=== PATIENT | female | born 1970 | race Caucasian/White ===

== ENCOUNTER 2016-12-22 10:43 | Emergency (ER) | payer MEDICAID | END 2016-12-22 12:09 | disposition left against medical advice (07) | LOC: ER 10:43 | DX: M54.2 Cervicalgia (principal); Z53.21 Procedure and treatment not carried out due to patient leaving prior to being seen by health care provider ==

== ENCOUNTER 2016-12-22 22:36 | Emergency (ER) | payer MEDICAID ==
[~2016-12-22] VITALS: Ht 160 cm; Wt 66.7 kg
[2016-12-22 23:02] VITALS: BP 112/75
[2016-12-23] MEDS ORDERED: IBUPROFEN 600 MG TAB PO ONE (01:00)
== END 2016-12-23 00:57 | disposition home or self-care (01) ==
LOC: ER 22:36
DX: I88.9 Nonspecific lymphadenitis, unspecified (principal); Z88.0 Allergy status to penicillin; Z88.6 Allergy status to analgesic agent; Z88.8 Allergy status to other drugs, medicaments and biological substances; Z90.710 Acquired absence of both cervix and uterus; Z90.49 Acquired absence of other specified parts of digestive tract

== ENCOUNTER 2017-03-07 16:18 | Inpatient (IN) | payer MEDICAID ==
[~2017-03-07] VITALS: Ht 160 cm; Wt 79.9 kg
[2017-03-07] MEDS ORDERED: ONDANSETRON HCL 4 MG/2 ML VIAL IV ONE (18:15)
[2017-03-07] MEDS ORDERED: ENOXAPARIN SOD 100 MG/1 ML SYRINGE SC ONE (18:15)
[2017-03-07] MEDS ORDERED: MORPHINE SULFATE 4 MG/ML SYRG IV ONE (18:15)
[2017-03-07] MEDS ORDERED: LACTULOSE 20Gm/30ML SOLN PO PRN (18:45)
[2017-03-07] MEDS ORDERED: NITROGLYCERIN 0.4 MG SL TAB SL PRN (18:45)
[2017-03-07] MEDS ORDERED: MORPHINE SULF INJ 2 MG/ML SYRINGE 1ML IV PRN (18:45)
[2017-03-07] MEDS ORDERED: IOHEXOL 350 MG/ML 100ML IJ ONE ×2 (19:11→20:44)
[2017-03-07 21:15] LABS: Basophils # (auto) 0 uL; Basophils % (auto) 0.5 % (0.0-2.0); CONDITION Y; Eosinophils # (auto) 0.1 uL; Hematocrit 33.9 % (36.0-46.0); Hemoglobin 11.1 g/dL (12.2-16.2); Lymphocytes # (auto) 2.4 uL; Lymphocytes % (auto) 43.9 % (10.0-50.0); Mean Corpuscular Hemoglobin 28.2 pg (28.0-32.0); Mean Corpuscular Hgb Conc. 32.8 g/dL (32.0-36.0); Mean Corpuscular Volume 85.9 fL (80.0-100.0); Mean Platelet Volume 9.4 fL (7.4-10.4); Monocytes # (auto) 0.5 uL; Monocytes % (auto) 9.6 % (0.0-12.0); Neutrophils # (auto) 2.4 uL; Platelet Count (auto) 291 10^3/uL (140-450); Red Cell Distribution Width 15.5 % (11.6-16.0); White Blood Cell 5.5 10^3/uL (4.4-10.8)
[2017-03-07 21:23] LABS: INR 1.02 (0.9-1.15); Partial Thromboplastin Time 33.6 sec (22.64-33.71); Prothrombin Time 11.1 sec (9.37-12.3)
[2017-03-07 21:30] LABS: Urine Bilirubin Negative (Negative); Urine Blood Negative /uL (Negative); Urine Color Yellow (Yellow); Urine Glucose Normal (Normal); Urine Ketone Negative (Negative); Urine Nitrite Negative (Negative); Urine RBC 1 /hpf (0 - 4); Urine Squamous Epithelial Cell FEW /hpf (<5); Urine Urobilinogen Normal (Negative)
[2017-03-07 21:30] LABS: Albumin 3.3 g/dL (3.4-5.0); BUN/Creatinine Ratio 13.2; Bilirubin, Total 0.4 mg/dL (0.2-1.0); Calcium 8.5 mg/dL (8.5-10.1); Potassium 3.7 mmol/L (3.5-5.1); Total Protein 7.2 g/dL (6.4-8.2)
[2017-03-07] MEDS: ENOXAPARIN SOD 80 MG/0.8ML SYRINGE SC SCH (21:40)
[2017-03-07] MEDS: MORPHINE SULF INJ 2 MG/ML SYRINGE 1ML IV PRN (21:42)
[2017-03-07 22:00] VITALS: BP 136/73
[2017-03-08] MEDS: LORazepam 0.5 MG TAB PO PRN (01:55)
[2017-03-08] MEDS: MORPHINE SULFATE 4 MG/ML SYRG IV PRN ×5 (01:58→18:43)
[2017-03-08] MEDS: MORPHINE SULF INJ 2 MG/ML SYRINGE 1ML IV PRN (02:00)
[2017-03-08 05:00] VITALS: BP 130/66
[2017-03-08] MEDS: ONDANSETRON HCL 4 MG/2 ML VIAL IV PRN ×4 (07:20→18:43)
[2017-03-08 08:00] VITALS: BP 124/66
[2017-03-08 09:00] VITALS: BP_SYST 124; BP_SYST 133; BP_DIAS 76
[2017-03-08 09:10] LABS: INR 1.02 (0.9-1.15); Partial Thromboplastin Time 35.5 sec (22.64-33.71); Prothrombin Time 11.1 sec (9.37-12.3)
[2017-03-08] MEDS: ENOXAPARIN SOD 80 MG/0.8ML SYRINGE SC SCH ×2 (09:43→22:02)
[2017-03-08] MEDS: PANTOPRAZOLE 40 MG TAB PO SCH (09:43)
[2017-03-08 13:00] VITALS: BP 130/67
[2017-03-08] MEDS ORDERED: NAPR1SUS PO (13:18)
[2017-03-08] MEDS ORDERED: DIPH25CA66 PO (13:18)
[2017-03-08] MEDS ORDERED: HYDR-531 PO (13:18)
[2017-03-08 17:00] VITALS: BP 131/78
[2017-03-08] MEDS ORDERED: WARFARIN SODIUM 10 MG TAB PO ONE (19:45)
[2017-03-08] MEDS ORDERED: KETOROLAC TROMETH 30 MG/ML 1ML VIAL IV ONE (21:15)
[2017-03-08] MEDS ORDERED: SODIUM CHLORIDE 0.9% 1,000 ML IV SCH (21:30)
[2017-03-08 22:00] VITALS: BP 132/79
[2017-03-08] MEDS ORDERED: PROMETHAZINE HCL 25 MG/ML 1ML IV PRN ×2 (22:30)
[2017-03-08] MEDS: SODIUM CHLORIDE 0.9% 1,000 ML IV SCH (22:52)
[2017-03-09 05:00] VITALS: BP 115/58
[2017-03-09 06:36] LABS: Basophils # (auto) 0 uL; Basophils % (auto) 0.5 % (0.0-2.0); CONDITION Y; Eosinophils # (auto) 0.1 uL; Eosinophils % (auto) 2.4 % (0.0-7.0); Hematocrit 31.6 % (36.0-46.0); Hemoglobin 10.4 g/dL (12.2-16.2); Lymphocytes # (auto) 1.8 uL; Lymphocytes % (auto) 39.7 % (10.0-50.0); Mean Corpuscular Hemoglobin 28.6 pg (28.0-32.0); Mean Corpuscular Volume 86.6 fL (80.0-100.0); Mean Platelet Volume 8.3 fL (7.4-10.4); Monocytes # (auto) 0.6 uL; Monocytes % (auto) 12.3 % (0.0-12.0); Neutrophils # (auto) 2.1 uL; Neutrophils % (auto) 45.1 % (37.0-80.0); Platelet Count (auto) 277 10^3/uL (140-450); Red Cell Distribution Width 15.8 % (11.6-16.0); White Blood Cell 4.6 10^3/uL (4.4-10.8)
[2017-03-09 06:47] LABS: INR 1.04 (0.9-1.15); Prothrombin Time 11.3 sec (9.37-12.3)
[2017-03-09] MEDS: MORPHINE SULF INJ 2 MG/ML SYRINGE 1ML IV PRN ×2 (07:04→21:47)
[2017-03-09 08:00] VITALS: BP 126/60
[2017-03-09 09:00] VITALS: BP 126/60
[2017-03-09] MEDS ORDERED: KETOROLAC TROMETH 30 MG/ML 1ML VIAL IV PRN (09:15)
[2017-03-09] MEDS: PANTOPRAZOLE 40 MG TAB PO SCH (10:22)
[2017-03-09] MEDS: ENOXAPARIN SOD 80 MG/0.8ML SYRINGE SC SCH ×2 (10:22→21:37)
[2017-03-09 13:00] VITALS: BP 121/77
[2017-03-09] MEDS ORDERED: WARFARIN SODIUM 10 MG TAB PO ONE (17:00)
[2017-03-09 18:16] VITALS: BP 124/63
[2017-03-09] MEDS: SODIUM CHLORIDE 0.9% 1,000 ML IV SCH (18:51)
[2017-03-09] MEDS: TEMAZEPAM 15 MG CAP PO PRN (21:49)
[2017-03-09 21:52] VITALS: BP 153/73
[2017-03-10] VITALS (7 sets, daily range): BP systolic 121–155; BP diastolic 55–67
[2017-03-10] MEDS: MORPHINE SULF INJ 2 MG/ML SYRINGE 1ML IV PRN (03:35)
[2017-03-10 06:51] LABS: INR 1.51 (0.9-1.15); Partial Thromboplastin Time 40.4 sec (22.64-33.71)
[2017-03-10 07:16] LABS: Prothrombin Time 16.5 sec (9.37-12.3)
[2017-03-10] MEDS ORDERED: CYANOCOBALAMIN 500 MCG TAB PO ONE (08:45)
[2017-03-10] MEDS ORDERED: MULTIPLE VITAMIN TAB PO ONE (08:45)
[2017-03-10] MEDS: FERROUS SULFATE 325 MG TAB PO SCH ×2 (09:00→17:06)
[2017-03-10] MEDS ORDERED: ERGOCALCIFEROL 50,000 UNIT(1.25MG) CAP PO SCH (09:00)
[2017-03-10] MEDS ORDERED: BISACODYL 10 MG RECT SUPP PR ONE (09:15)
[2017-03-10] MEDS ORDERED: ALBUTEROL SULF 2.5 MG/0.5ML(0.5%) NEB SOLN NEB PRN (09:15)
[2017-03-10] MEDS: PANTOPRAZOLE 40 MG TAB PO SCH (09:53)
[2017-03-10] MEDS: ENOXAPARIN SOD 80 MG/0.8ML SYRINGE SC SCH ×2 (09:54→21:34)
[2017-03-10] MEDS: LORazepam 0.5 MG TAB PO PRN ×2 (15:02→21:41)
[2017-03-10] MEDS: ONDANSETRON HCL 4 MG/2 ML VIAL IV PRN (15:02)
[2017-03-10] MEDS ORDERED: WARFARIN SODIUM 2.5 MG TAB PO ONE (17:00)
[2017-03-10] MEDS ORDERED: MORPHINE SULF INJ 2 MG/ML SYRINGE 1ML IV ONE (18:00)
[2017-03-10] MEDS ORDERED: BACLOFEN 10 MG TAB PO ONE (18:00)
[2017-03-10] MEDS: TEMAZEPAM 15 MG CAP PO PRN (21:35)
[2017-03-10] MEDS ORDERED: BACLOFEN 10 MG TAB PO SCH (22:00)
[2017-03-10] MEDS ORDERED: BACLOFEN 10 MG TAB PO PRN (22:00)
[2017-03-11 04:51] VITALS: BP 121/58
[2017-03-11 06:40] LABS: Basophils # (auto) 0 uL; Basophils % (auto) 0.6 % (0.0-2.0); CONDITION Y; Eosinophils # (auto) 0.1 uL; Hematocrit 30.9 % (36.0-46.0); Hemoglobin 10.4 g/dL (12.2-16.2); Lymphocytes # (auto) 1.9 uL; Mean Corpuscular Hemoglobin 28.8 pg (28.0-32.0); Mean Corpuscular Hgb Conc. 33.5 g/dL (32.0-36.0); Mean Corpuscular Volume 86.1 fL (80.0-100.0); Mean Platelet Volume 8.9 fL (7.4-10.4); Monocytes # (auto) 0.6 uL; Monocytes % (auto) 12.7 % (0.0-12.0); Neutrophils # (auto) 1.9 uL; Neutrophils % (auto) 41.7 % (37.0-80.0); Platelet Count (auto) 254 10^3/uL (140-450); Red Cell Distribution Width 15.3 % (11.6-16.0); White Blood Cell 4.5 10^3/uL (4.4-10.8)
[2017-03-11 06:47] LABS: INR 2.2 (0.9-1.15); Partial Thromboplastin Time 39.6 sec (22.64-33.71)
[2017-03-11 06:51] LABS: Prothrombin Time 24.2 sec (9.37-12.3)
[2017-03-11 06:59] LABS: Calcium 7.7 mg/dL (8.5-10.1); Magnesium 2.4 mg/dL (1.6-2.6); Potassium 3.9 mmol/L (3.5-5.1)
[2017-03-11 07:02] LABS: BUN/Creatinine Ratio 8.9
[2017-03-11 08:00] VITALS: BP 117/57
[2017-03-11] MEDS: FERROUS SULFATE 325 MG TAB PO SCH (08:00)
[2017-03-11 09:00] VITALS: BP 117/57
[2017-03-11] MEDS: ONDANSETRON HCL 4 MG/2 ML VIAL IV PRN (09:16)
[2017-03-11] MEDS: PANTOPRAZOLE 40 MG TAB PO SCH (09:31)
[2017-03-11] MEDS: ENOXAPARIN SOD 80 MG/0.8ML SYRINGE SC SCH (09:31)
[2017-03-11 12:07] LABS: Protein S Antigen Free 47 % (57-157); Proten S Antigen Total 58 % (60-150)
[2017-03-11 13:00] VITALS: BP 122/65
[2017-03-11 14:53] VITALS: BP 122/65
[2017-03-11] MEDS ORDERED: WARFARIN SODIUM 1 MG TAB PO ONE (17:00)
== END 2017-03-11 15:30 | disposition home or self-care (01) | DRG 197 ==
LOC: ER 16:23 → TELE 16:24 → TELE-EAST 21:00
PROVIDERS: ADMIT Internal Medicine; ATTEND Internal Medicine
DX: I82.622 Acute embolism and thrombosis of deep veins of left upper extremity (principal); I26.99 Other pulmonary embolism without acute cor pulmonale; K64.8 Other hemorrhoids; E66.01 Morbid (severe) obesity due to excess calories; D64.9 Anemia, unspecified; I82.619 Acute embolism and thrombosis of superficial veins of unspecified upper extremity; Z80.0 Family history of malignant neoplasm of digestive organs; Z80.3 Family history of malignant neoplasm of breast; Z82.49 Family history of ischemic heart disease and other diseases of the circulatory system; Z83.3 Family history of diabetes mellitus; Z86.711 Personal history of pulmonary embolism; Z98.84 Bariatric surgery status; Z82.61 Family history of arthritis; Z90.49 Acquired absence of other specified parts of digestive tract; Z79.899 Other long term (current) drug therapy; Z88.0 Allergy status to penicillin; Z88.5 Allergy status to narcotic agent; Z88.8 Allergy status to other drugs, medicaments and biological substances; Z90.710 Acquired absence of both cervix and uterus
CPT/HCPCS: 36415; 71275; 80048; 80053; 81001; 81241; 83735; 85025; 85302; 85305; 85306; 85610; 85613; 85670; 85705; 85730; 85732; 93970; 93971; 94640; 96372; 96374; 96375; J1885; J2405

== ENCOUNTER → 2017-05-04 | Outpatient (CLI) | payer MEDICAID ==
[~2017-05-04] MED LIST: DIPH25CA66 PO; HYDR-531 PO; NAPR1SUS PO
== END | disposition home or self-care (01) ==
LOC: RT 08:45
PROVIDERS: ATTEND Internal Medicine Cardiovascular Disease
DX: R94.2 Abnormal results of pulmonary function studies (principal); R42 Dizziness and giddiness; I10 Essential (primary) hypertension
CPT/HCPCS: 94060; 94640

== ENCOUNTER → 2017-06-19 | Outpatient (CLI) | payer MEDICAID ==
[2017-06-19 10:00] VITALS: BP 139/71
[2017-06-19 11:20] VITALS: BP 148/62
== END | disposition home or self-care (01) ==
LOC: Rad HDHVI 10:01
PROVIDERS: ATTEND Internal Medicine Cardiovascular Disease
DX: I25.10 Atherosclerotic heart disease of native coronary artery without angina pectoris (principal); I70.0 Atherosclerosis of aorta; I82.622 Acute embolism and thrombosis of deep veins of left upper extremity; Z98.84 Bariatric surgery status; M47.896 Other spondylosis, lumbar region
CPT/HCPCS: 71275; 82565; 96374; G0463; Q9967

== ENCOUNTER 2018-05-29 19:18 | Inpatient (IN) | payer MEDICAID ==
[~2018-05-29] VITALS: Ht 160 cm; Wt 70.4 kg
[2018-05-29 20:57] LABS: Basophils # (auto) 0 uL; Basophils % (auto) 0.8 % (0.0-2.0); Eosinophils # (auto) 0.1 uL; Eosinophils % (auto) 1.1 % (0.0-7.0); Hematocrit 33.2 % (36.0-46.0); Hemoglobin 10.7 g/dL (12.2-16.2); Lymphocytes # (auto) 2.1 uL; Lymphocytes % (auto) 38.4 % (10.0-50.0); Mean Corpuscular Hemoglobin 24.9 pg (28.0-32.0); Mean Corpuscular Hgb Conc. 32.2 g/dL (32.0-36.0); Mean Corpuscular Volume 77.5 fL (80.0-100.0); Monocytes # (auto) 0.5 uL; Monocytes % (auto) 9.5 % (0.0-12.0); Neutrophils # (auto) 2.8 uL; Neutrophils % (auto) 50.2 % (37.0-80.0); Platelet Count (auto) 339 10^3/uL (140-450); Red Blood Cells 4.28 10^6/uL (4.0-5.20); Red Cell Distribution Width 17.9 % (11.8-14.3); White Blood Cell 5.5 10^3/uL (4.4-10.8)
[2018-05-29 21:15] LABS: Alanine Aminotransferase 21 U/L (13-56); Albumin 3.4 g/dL (3.4-5.0); Anion Gap 7 (5-15); Aspartate Aminotransferase 20 U/L (15-37); BUN/Creatinine Ratio 11.8; Blood Urea Nitrogen 9 mg/dL (7-18); Calcium 8.1 mg/dL (8.5-10.1); Carbon Dioxide 26 mmol/L (21-32); Chloride 108 mmol/L (98-107); GFR African American 106 mL/min; GFR Non-African American 87 mL/min; Glucose 87 mg/dL (74-106); Magnesium 2.3 mg/dL (1.6-2.6); Potassium 4.2 mmol/L (3.5-5.1); Sodium 141 mmol/L (136-145)
[2018-05-29 21:20] LABS: Alkaline Phosphatase 79 U/L (45-117); Bilirubin, Total 0.4 mg/dL (0.2-1.0); Total Protein 7.5 g/dL (6.4-8.2)
[2018-05-29 22:06] LABS: Urine Bacteria MANY /hpf (None Seen); Urine Blood Negative /uL (Negative); Urine Mucus FEW (None Seen); Urine Specific Gravity 1.026 (1.001-1.035); Urine WBC 13 /hpf (0 - 5)
[2018-05-30] MEDS ORDERED: ONDANSETRON HCL 4 MG/2 ML VIAL IV ONE (00:15)
[2018-05-30] MEDS ORDERED: MORPHINE SULFATE 4 MG/ML SYR/VIAL IV ONE (00:15)
[2018-05-30] MEDS ORDERED: cefTRIAXone 1GM/10ml IVPUSH 10 ML IV ONE (00:30)
[2018-05-30] MEDS ORDERED: ONDANSETRON ODT 4 MG TAB PO ONE ×3 (00:43→03:30)
[2018-05-30] MEDS ORDERED: HYDROcodone-ACET 10/325MG TAB PO ONE (00:45)
[2018-05-30] MEDS ORDERED: LEVOFLOXACIN 500 MG TAB PO ONE (01:00)
[2018-05-30] MEDS ORDERED: cefTRIAXone SOD 1,000 MG VL IM ONE (01:15)
[2018-05-30] MEDS ORDERED: NITROGLYCERIN 0.4 MG SL TAB SL PRN (03:30)
[2018-05-30] MEDS ORDERED: TEMAZEPAM 15 MG CAP PO PRN (03:30)
[2018-05-30] MEDS ORDERED: MORPHINE SULFATE 4 MG/ML SYR/VIAL IV PRN ×2 (03:30→11:30)
[2018-05-30] MEDS ORDERED: ONDANSETRON HCL 4 MG/2 ML VIAL IV PRN ×2 (03:30→13:30)
[2018-05-30] MEDS ORDERED: HYDROcodone-ACET 5/325MG TAB PO PRN (03:30)
[2018-05-30] MEDS ORDERED: ACETAMINOPHEN 325 MG TAB PO PRN (03:30)
[2018-05-30] MEDS ORDERED: MORPHINE SULFATE 4 MG/ML SYR/VIAL IM ONE (03:30)
[2018-05-30 06:30] VITALS: BP 109/75
[2018-05-30] MEDS ORDERED: ZOLP-158 PO (06:57)
[2018-05-30] MEDS ORDERED: APIX5TAB OR (06:57)
[2018-05-30] MEDS ORDERED: ONDA4TAB5 PO (06:58)
[2018-05-30 09:00] VITALS: BP 109/75
[2018-05-30] MEDS ORDERED: ASPirin 81 mg TAB PO SCH (10:00)
[2018-05-30] MEDS ORDERED: APIXABAN 5 MG TAB PO SCH (10:00)
[2018-05-30] MEDS ORDERED: LEVOFLOXACIN 500 MG TAB PO SCH (10:00)
[2018-05-30] MEDS ORDERED: FAMOTIDINE 20 MG TAB PO SCH (10:00)
[2018-05-30] MEDS ORDERED: LACTULOSE 20Gm/30ML SOLN PO ONE (11:00)
[2018-05-30] MEDS ORDERED: PANTOPRAZOLE 40 MG/10 ML VIAL IV SCH (12:00)
[2018-05-30 13:00] VITALS: BP 138/67
[2018-05-30] MEDS: SOD CHL 0.45% WITH 20MEQ KCL 1,000 ML IV SCH (13:15)
[2018-05-30 17:00] VITALS: BP 137/64
[2018-05-30] MEDS: SUCRALFATE 1 GM/10 ML ORAL SUSP PO SCH ×2 (17:00→21:29)
[2018-05-30] MEDS: LACTULOSE 20Gm/30ML SOLN PO SCH (21:29)
[2018-05-30] MEDS: PANTOPRAZOLE 40 MG/10 ML VIAL IV SCH (21:29)
[2018-05-30 21:56] VITALS: BP 126/72
[2018-05-31] MEDS: SOD CHL 0.45% WITH 20MEQ KCL 1,000 ML IV SCH (02:46)
[2018-05-31 05:22] VITALS: BP 127/53
[2018-05-31] MEDS: SUCRALFATE 1 GM/10 ML ORAL SUSP PO SCH ×2 (06:35→11:30)
[2018-05-31] MEDS ORDERED: BARIUM SULFATE 98% 340 GM PWDR ONE (08:36)
[2018-05-31] MEDS ORDERED: EZ-GAS II GRANULES (RADIOLOGY USE) PO ONE (08:45)
[2018-05-31 09:00] VITALS: BP 122/48
[2018-05-31] MEDS ORDERED: GASTROGRAFIN 120 ML SOL ONE (09:03)
[2018-05-31] MEDS ORDERED: LEVOFLOXACIN 500MG 100 ML IV SCH (10:00)
[2018-05-31] MEDS: LACTULOSE 20Gm/30ML SOLN PO SCH (10:46)
[2018-05-31] MEDS: PANTOPRAZOLE 40 MG/10 ML VIAL IV SCH (10:46)
[2018-05-31] MEDS ORDERED: CEPH-37 PO (11:43)
[2018-05-31] MEDS ORDERED: DULO60CA PO (11:43)
[2018-05-31] MEDS ORDERED: PANT40TA2 PO (11:49)
[2018-05-31 12:27] VITALS: BP 122/48
== END 2018-05-31 13:47 | disposition home or self-care (01) | DRG 140 ==
LOC: ER 19:18 → TELE 19:19 → TELE-EAST 05-30 06:18 → EAST 05-31 00:26
PROVIDERS: ADMIT Nurse Practitioner; ATTEND Internal Medicine
DX: J47.1 Bronchiectasis with (acute) exacerbation (principal); J45.909 Unspecified asthma, uncomplicated; M79.7 Fibromyalgia; R07.89 Other chest pain; N63.0 Unspecified lump in unspecified breast; N64.4 Mastodynia; N39.0 Urinary tract infection, site not specified; K59.00 Constipation, unspecified; Z79.01 Long term (current) use of anticoagulants; Z80.3 Family history of malignant neoplasm of breast; Z82.49 Family history of ischemic heart disease and other diseases of the circulatory system; Z86.711 Personal history of pulmonary embolism; Z90.3 Acquired absence of stomach [part of]; Z90.49 Acquired absence of other specified parts of digestive tract; Z83.3 Family history of diabetes mellitus; Z90.710 Acquired absence of both cervix and uterus; Z98.82 Breast implant status; Z98.84 Bariatric surgery status; Z88.0 Allergy status to penicillin; Z88.8 Allergy status to other drugs, medicaments and biological substances
CPT/HCPCS: 36415; 71046; 71250; 74176; 74247; 76642; 80053; 81001; 83735; 84484; 85025; 85379; 93005; 93306; 93971; 96372; C9113; J0696; J1956; J2405; Q0162

== ENCOUNTER 2018-09-06 09:41 | Emergency (ER) | payer SELFPAY ==
[~2018-09-06] VITALS: Ht 160 cm; Wt 68.0 kg
[~2018-09-06 09:41] MED LIST changes: +APIX5TAB OR; +CEPH-37 PO; -DIPH25CA66 PO; +DULO60CA PO; -HYDR-531 PO; -NAPR1SUS PO; +ONDA4TAB5 PO; +PANT40TA2 PO; +ZOLP-158 PO
[2018-09-06 10:26] VITALS: BP 134/72
[2018-09-06 10:44] LABS: Basophils # (auto) 0 uL; Eosinophils # (auto) 0 uL; Red Blood Cells 4.18 10^6/uL (4.0-5.20); White Blood Cell 4.2 10^3/uL (4.4-10.8)
[2018-09-06 10:45] LABS: Basophils % (auto) 0.7 % (0.0-2.0); Eosinophils % (auto) 1.1 % (0.0-7.0); Hematocrit 31.1 % (36.0-46.0); Hemoglobin 9.8 g/dL (12.2-16.2); Lymphocytes % (auto) 46.9 % (10.0-50.0); Mean Corpuscular Hemoglobin 23.4 pg (28.0-32.0); Mean Corpuscular Hgb Conc. 31.5 g/dL (32.0-36.0); Mean Corpuscular Volume 74.3 fL (80.0-100.0); Monocytes # (auto) 0.5 uL; Monocytes % (auto) 10.8 % (0.0-12.0); Neutrophils # (auto) 1.7 uL; Neutrophils % (auto) 40.5 % (37.0-80.0); Nucleated Red Blood Cells % 0.2 %; Platelet Count (auto) 319 10^3/uL (140-450); Red Cell Distribution Width 17.1 % (11.8-14.3)
[2018-09-06] MEDS ORDERED: ONDANSETRON HCL 4 MG/2 ML VIAL IV ONE ×2 (10:45→12:30)
[2018-09-06] MEDS ORDERED: KETOROLAC TROMETH 30 MG/ML 1ML VIAL IV ONE (10:45)
[2018-09-06 11:02] LABS: Albumin 3.7 g/dL (3.4-5.0); Anion Gap 9 (5-15); Blood Urea Nitrogen 11 mg/dL (7-18); Calcium 8.5 mg/dL (8.5-10.1); Carbon Dioxide 22 mmol/L (21-32); Chloride 108 mmol/L (98-107); Glucose 72 mg/dL (74-106); Magnesium 2.1 mg/dL (1.6-2.6); Potassium 3.7 mmol/L (3.5-5.1); Sodium 139 mmol/L (136-145)
[2018-09-06 11:03] LABS: Alanine Aminotransferase 23 U/L (13-56); Aspartate Aminotransferase 51 U/L (15-37); BUN/Creatinine Ratio 15.9; GFR African American > 60 mL/min; GFR Non-African American > 60 mL/min
[2018-09-06 11:09] LABS: Alkaline Phosphatase 77 U/L (45-117); Bilirubin, Total 0.4 mg/dL (0.2-1.0); Total Protein 7.7 g/dL (6.4-8.2)
[2018-09-06] MEDS ORDERED: LORazepam 2MG/ML-1ML VIAL IV ONE (11:15)
[2018-09-06] MEDS ORDERED: MORPHINE SULFATE 10 MG/ML INJ 1ML SDV IV ONE (12:30)
[2018-09-06] MEDS ORDERED: SODIUM CHLORIDE 0.9% 1,000 ML IV ONE (12:30)
== END 2018-09-06 12:15 | disposition home or self-care (01) ==
LOC: ER 09:41
DX: R07.89 Other chest pain (principal); J45.909 Unspecified asthma, uncomplicated; Z90.49 Acquired absence of other specified parts of digestive tract; Z90.710 Acquired absence of both cervix and uterus; Z90.89 Acquired absence of other organs; Z88.0 Allergy status to penicillin; Z88.8 Allergy status to other drugs, medicaments and biological substances
CPT/HCPCS: 36415; 71046; 80053; 83735; 84443; 84484; 85025; 93005; 96374; 96375; 99284; J1885; J2060; J2405

== ENCOUNTER 2018-10-03 08:17 | Emergency (ER) | payer MEDICAID ==
[~2018-10-03] VITALS: Ht 160 cm; Wt 64.4 kg
[2018-10-03] MEDS ORDERED: FERROUS SULFATE 300 MG/5 ML ORAL LIQ GT ONE ×2 (11:00)
[2018-10-03 11:19] LABS: Urine Bacteria FEW /hpf (None Seen); Urine Blood Negative /uL (Negative); Urine WBC 1 /hpf (0 - 5)
[2018-10-03 14:12] LABS: Basophils # (auto) 0 uL; Eosinophils # (auto) 0 uL; Eosinophils % (auto) 1.2 % (0.0-7.0); Hemoglobin 9.2 g/dL (12.2-16.2); Lymphocytes # (auto) 1.2 uL; Red Cell Distribution Width 18.8 % (11.8-14.3)
[2018-10-03 14:14] LABS: Basophils % (auto) 0.8 % (0.0-2.0); Hematocrit 29.3 % (36.0-46.0); Lymphocytes % (auto) 33.2 % (10.0-50.0); Mean Corpuscular Hgb Conc. 31.4 g/dL (32.0-36.0); Mean Corpuscular Volume 73.3 fL (80.0-100.0); Monocytes # (auto) 0.3 uL; Monocytes % (auto) 9.1 % (0.0-12.0); Neutrophils % (auto) 55.7 % (37.0-80.0); Platelet Count (auto) 341 10^3/uL (140-450); Red Blood Cells 3.99 10^6/uL (4.0-5.20); White Blood Cell 3.7 10^3/uL (4.4-10.8)
[2018-10-03] MEDS ORDERED: FERROUS SULFATE 325 MG TAB PO ONE (14:15)
[2018-10-03 14:20] VITALS: BP 130/74
[2018-10-03 14:30] LABS: Alanine Aminotransferase 24 U/L (13-56); Albumin 3.6 g/dL (3.4-5.0); Anion Gap 1 (5-15); Blood Urea Nitrogen 10 mg/dL (7-18); Calcium 8.1 mg/dL (8.5-10.1); Carbon Dioxide 30 mmol/L (21-32); Chloride 108 mmol/L (98-107); Glucose 104 mg/dL (74-106); Magnesium 2.3 mg/dL (1.6-2.6); Potassium 3.9 mmol/L (3.5-5.1); Sodium 139 mmol/L (136-145)
[2018-10-03 14:35] LABS: Alkaline Phosphatase 81 U/L (45-117); Aspartate Aminotransferase 23 U/L (15-37); BUN/Creatinine Ratio 14.7; Bilirubin, Total 0.3 mg/dL (0.2-1.0); GFR African American 120 mL/min; GFR Non-African American 99 mL/min; Total Protein 7.7 g/dL (6.4-8.2)
== END 2018-10-03 15:40 | disposition home or self-care (01) ==
LOC: ER 08:17
DX: D64.9 Anemia, unspecified (principal); J45.909 Unspecified asthma, uncomplicated; Z86.711 Personal history of pulmonary embolism; Z90.49 Acquired absence of other specified parts of digestive tract; Z88.0 Allergy status to penicillin; Z88.8 Allergy status to other drugs, medicaments and biological substances; Z79.899 Other long term (current) drug therapy; Z90.710 Acquired absence of both cervix and uterus
CPT/HCPCS: 36415; 71046; 80053; 81001; 83735; 84443; 84484; 85025; 85652; 86038; 86141; 93005; 93970

== ENCOUNTER 2019-07-11 05:34 | Emergency (ER) | payer MEDICAID ==
[~2019-07-11] VITALS: Ht 160 cm; Wt 69.4 kg
[~2019-07-11 05:34] MED LIST changes: +ONDA-144 PO; -ONDA4TAB5 PO
[2019-07-11 07:20] LABS: Basophils # (auto) 0 uL; Basophils % (auto) 0.6 % (0.0-2.0); Eosinophils # (auto) 0 uL; Eosinophils % (auto) 1.2 % (0.0-7.0); Hematocrit 37.9 % (36.0-46.0); Hemoglobin 12.9 g/dL (12.2-16.2); Lymphocytes # (auto) 1.6 uL; Lymphocytes % (auto) 36.6 % (10.0-50.0); Mean Corpuscular Hemoglobin 31.6 pg (28.0-32.0); Mean Corpuscular Hgb Conc. 34.1 g/dL (32.0-36.0); Mean Corpuscular Volume 92.8 fL (80.0-100.0); Monocytes # (auto) 0.5 uL; Monocytes % (auto) 11.9 % (0.0-12.0); Neutrophils # (auto) 2.1 uL; Neutrophils % (auto) 49.7 % (37.0-80.0); Platelet Count (auto) 229 10^3/uL (140-450); Red Blood Cells 4.08 10^6/uL (4.0-5.20); Red Cell Distribution Width 13.1 % (11.8-14.3); White Blood Cell 4.2 10^3/uL (4.4-10.8)
[2019-07-11 07:29] LABS: Alanine Aminotransferase 24 U/L (13-56); Albumin 3.4 g/dL (3.4-5.0); Anion Gap 6 (5-15); Blood Urea Nitrogen 14 mg/dL (7-18); Carbon Dioxide 25 mmol/L (21-32); Chloride 108 mmol/L (98-107); Glucose 78 mg/dL (74-106); Potassium 3.6 mmol/L (3.5-5.1); Sodium 139 mmol/L (136-145)
[2019-07-11 07:34] LABS: Alkaline Phosphatase 68 U/L (45-117); Aspartate Aminotransferase 20 U/L (15-37); BUN/Creatinine Ratio 19.2; Bilirubin, Total 0.4 mg/dL (0.2-1.0); GFR African American 110 mL/min; GFR Non-African American 91 mL/min; Total Protein 7.2 g/dL (6.4-8.2)
[2019-07-11 07:39] LABS: INR 1.18 (0.9-1.15); Partial Thromboplastin Time 39.3 sec (23.64-32.05)
[2019-07-11 08:00] LABS: Urine Bacteria NONE SEEN /hpf (None Seen); Urine Blood Negative /uL (Negative); Urine WBC 1 /hpf (0 - 5)
[2019-07-11] MEDS ORDERED: HYDROcodone-ACET 10/325MG TAB PO ONE (08:30)
[2019-07-11 10:17] VITALS: BP 119/69
== END 2019-07-11 10:27 | disposition home or self-care (01) ==
LOC: ER 05:34
DX: R07.89 Other chest pain (principal)
CPT/HCPCS: 36415; 71045; 80053; 81001; 84484; 85025; 85379; 85610; 85730; 93005; 93971

== ENCOUNTER 2019-11-03 09:54 | Emergency (ER) | payer MEDICAID ==
[~2019-11-03] VITALS: Ht 160 cm; Wt 72.6 kg
[2019-11-03] MEDS ORDERED: SODIUM CHLORIDE 0.9% 500 ML IV ONE (10:54)
[2019-11-03] MEDS ORDERED: MORPHINE SULFATE 4 MG/ML SYR/VIAL IV ONE ×2 (11:00→18:00)
[2019-11-03] MEDS ORDERED: ONDANSETRON HCL 4 MG/2 ML VIAL IV ONE ×2 (11:00→18:00)
[2019-11-03 15:02] LABS: Urine Bacteria FEW /hpf (None Seen); Urine Blood Negative /uL (Negative); Urine Specific Gravity 1.005 (1.001-1.035); Urine WBC 4 /hpf (0 - 5)
[2019-11-03 15:32] LABS: Basophils # (auto) 0 10 ^3/uL (0-0.2); Basophils % (auto) 0.5 % (0.0-2.0); Eosinophils # (auto) 0.1 10 ^3/uL (0-0.8); Eosinophils % (auto) 1.5 % (0.0-7.0); Hematocrit 36.2 % (36.0-46.0); Hemoglobin 12.1 g/dL (12.2-16.2); Lymphocytes # (auto) 1.3 10 ^3/uL (0.4-5.4); Lymphocytes % (auto) 35.4 % (10.0-50.0); Mean Corpuscular Hemoglobin 30.3 pg (28.0-32.0); Mean Corpuscular Hgb Conc. 33.4 g/dL (32.0-36.0); Mean Corpuscular Volume 90.7 fL (80.0-100.0); Monocytes # (auto) 0.3 10 ^3/uL (0-1.3); Monocytes % (auto) 9.1 % (0.0-12.0); Neutrophils % (auto) 53.5 % (37.0-80.0); Nucleated Red Blood Cells % 0.1 %; Platelet Count (auto) 247 10^3/uL (140-450); Red Blood Cells 3.99 10^6/uL (4.0-5.20); Red Cell Distribution Width 13.4 % (11.8-14.3); White Blood Cell 3.8 10^3/uL (4.4-10.8)
[2019-11-03 15:48] LABS: Albumin 3.1 g/dL (3.4-5.0); Calcium 7.9 mg/dL (8.5-10.1)
[2019-11-03 15:53] LABS: BUN/Creatinine Ratio 11.7; Bilirubin, Total 0.2 mg/dL (0.2-1.0); Total Protein 6.6 g/dL (6.4-8.2)
[2019-11-03 16:42] VITALS: BP 112/69
== END 2019-11-03 18:20 | disposition home or self-care (01) ==
LOC: ER 09:54
DX: N39.0 Urinary tract infection, site not specified (principal); R07.89 Other chest pain; R42 Dizziness and giddiness; J45.909 Unspecified asthma, uncomplicated
CPT/HCPCS: 36415; 71046; 80053; 81001; 84484; 85025; 93005; 96374; 96375; 96376; 99285; J2270; J2405; J7040

== ENCOUNTER 2021-07-02 17:33 | Emergency (ER) | payer MEDICAID ==
[~2021-07-02] VITALS: Ht 160 cm; Wt 66.7 kg
[~2021-07-02 17:33] MED LIST changes: -ZOLP-158 PO; +ZOLP5TAB PO
[2021-07-02] MEDS ORDERED: MORPHINE SULFATE INJECTION 2 MG/ML SYRG IV ONE (19:15)
[2021-07-02] MEDS ORDERED: ONDANSETRON ODT 4 MG TAB PO ONE (21:15)
[2021-07-02 21:57] LABS: Basophils # (auto) 0 10 ^3/uL (0-0.2); Basophils % (auto) 0.6 % (0.0-2.0); Eosinophils # (auto) 0.1 10 ^3/uL (0-0.8); Hematocrit 37.8 % (36.0-46.0); Hemoglobin 12.6 g/dL (12.2-16.2); Lymphocytes # (auto) 1.9 10 ^3/uL (0.4-5.4); Lymphocytes % (auto) 33.1 % (10.0-50.0); Mean Corpuscular Hemoglobin 30.7 pg (28.0-32.0); Mean Corpuscular Hgb Conc. 33.3 g/dL (32.0-36.0); Mean Corpuscular Volume 92.4 fL (80.0-100.0); Monocytes # (auto) 0.5 10 ^3/uL (0-1.3); Neutrophils # (auto) 3.2 10 ^3/uL (1.6-8.6); Neutrophils % (auto) 56.3 % (37.0-80.0); Nucleated Red Blood Cells % 0.1 %; Red Blood Cells 4.09 10^6/uL (4.0-5.20); White Blood Cell 5.8 10^3/uL (4.4-10.8)
[2021-07-02 22:14] LABS: Albumin 3.3 g/dL (3.4-5.0); Calcium 8.3 mg/dL (8.5-10.1)
[2021-07-02 22:16] LABS: BUN/Creatinine Ratio 18.6
[2021-07-02 22:18] LABS: Bilirubin, Total 0.3 mg/dL (0.2-1.0); Total Protein 6.9 g/dL (6.4-8.2)
[2021-07-02 22:20] LABS: INR 1.05 (0.9-1.15); Partial Thromboplastin Time 32.2 sec (23.6-33.0)
[2021-07-02] MEDS ORDERED: MORPHINE SULFATE INJECTION 2 MG/ML SYRG IM ONE (23:45)
[2021-07-03] MEDS ORDERED: ONDANSETRON ODT 4 MG TAB PO ONE (00:15)
[2021-07-03 00:54] VITALS: BP 156/93
== END 2021-07-03 01:04 | disposition home or self-care (01) ==
LOC: ER 17:33
DX: M79.601 Pain in right arm (principal); M54.12 Radiculopathy, cervical region; Q18.0 Sinus, fistula and cyst of branchial cleft; J45.909 Unspecified asthma, uncomplicated; Z90.49 Acquired absence of other specified parts of digestive tract; Z90.710 Acquired absence of both cervix and uterus; Z90.89 Acquired absence of other organs; Z86.73 Personal history of transient ischemic attack (TIA), and cerebral infarction without residual deficits; Z79.899 Other long term (current) drug therapy; Z88.0 Allergy status to penicillin; Z88.8 Allergy status to other drugs, medicaments and biological substances
CPT/HCPCS: 36415; 72125; 80053; 85025; 85379; 85610; 85730; 93005; 93971; 96372; 96374; 99285; J2270; Q0162

== ENCOUNTER → 2021-11-24 | Outpatient (CLI) | payer MEDICAID ==
[2021-11-24 10:31] LABS: Basophils # (auto) 0 10 ^3/uL (0-0.2); Basophils % (auto) 0.9 % (0.0-2.0); Eosinophils # (auto) 0.1 10 ^3/uL (0-0.8); Lymphocytes # (auto) 1.6 10 ^3/uL (0.4-5.4); Mean Corpuscular Hgb Conc. 32.2 g/dL (32.0-36.0); Monocytes # (auto) 0.4 10 ^3/uL (0-1.3); Neutrophils # (auto) 1.8 10 ^3/uL (1.6-8.6); Nucleated Red Blood Cells % 0.1 %; White Blood Cell 3.8 10^3/uL (4.4-10.8)
[2021-11-24 10:32] LABS: Eosinophils % (auto) 1.6 % (0.0-7.0); Hematocrit 31.9 % (36.0-46.0); Hemoglobin 10.3 g/dL (12.2-16.2); Lymphocytes % (auto) 40.5 % (10.0-50.0); Mean Corpuscular Hemoglobin 25.8 pg (28.0-32.0); Monocytes % (auto) 11.4 % (0.0-12.0); Neutrophils % (auto) 45.6 % (37.0-80.0); Red Blood Cells 3.99 10^6/uL (4.0-5.20); Red Cell Distribution Width 14.8 % (11.8-14.3)
[2021-11-24 10:41] LABS: Urine Bacteria FEW /hpf (None Seen); Urine Blood Negative /uL (Negative); Urine Mucus FEW (None Seen); Urine Specific Gravity 1.029 (1.001-1.035); Urine WBC 1 /hpf (0 - 5)
[2021-11-24 11:40] LABS: Albumin 3.3 g/dL (3.4-5.0); Calcium 8.3 mg/dL (8.5-10.1); Potassium 3.9 mmol/L (3.5-5.1)
[2021-11-24 11:46] LABS: Bilirubin, Total 0.3 mg/dL (0.2-1.0); Total Protein 7.3 g/dL (6.4-8.2)
[2021-11-24 16:49] LABS: % Iron Saturation 4.1 % (15-50)
[2021-11-24 17:11] LABS: Ferritin 4.3 ng/mL (10-322); Folate (Folic Acid) 14.43 ng/mL (5.38-24)
== END | disposition home or self-care (01) ==
LOC: LAB 09:54
PROVIDERS: ATTEND Internal Medicine
DX: K90.9 Intestinal malabsorption, unspecified (principal); D68.9 Coagulation defect, unspecified; D50.9 Iron deficiency anemia, unspecified; G89.4 Chronic pain syndrome
CPT/HCPCS: 36415; 80053; 81001; 82607; 82728; 82746; 83540; 83550; 83615; 85025; 87086

== ENCOUNTER → 2022-04-10 | Outpatient (CLI) | payer MEDICAID ==
[2022-04-10 12:13] LABS: Basophils # (auto) 0 10 ^3/uL (0-0.2); Basophils % (auto) 0.6 % (0.0-2.0); Eosinophils # (auto) 0 10 ^3/uL (0-0.8); Hematocrit 35.2 % (36.0-46.0); Hemoglobin 11.1 g/dL (12.2-16.2); Lymphocytes # (auto) 1.4 10 ^3/uL (0.4-5.4); Lymphocytes % (auto) 39.1 % (10.0-50.0); Mean Corpuscular Hemoglobin 27.3 pg (28.0-32.0); Mean Corpuscular Hgb Conc. 31.6 g/dL (32.0-36.0); Mean Corpuscular Volume 86.2 fL (80.0-100.0); Monocytes # (auto) 0.4 10 ^3/uL (0-1.3); Monocytes % (auto) 10.6 % (0.0-12.0); Neutrophils # (auto) 1.7 10 ^3/uL (1.6-8.6); Neutrophils % (auto) 48.7 % (37.0-80.0); Red Blood Cells 4.08 10^6/uL (4.0-5.20); Red Cell Distribution Width 17.1 % (11.8-14.3); White Blood Cell 3.5 10^3/uL (4.4-10.8)
[2022-04-10 12:49] LABS: Potassium 3.6 mmol/L (3.5-5.1)
[2022-04-10 12:57] LABS: Ferritin 11.8 ng/mL (10-322); Folate (Folic Acid) 12.54 ng/mL (5.38-24)
[2022-04-10 13:10] LABS: Albumin 3.5 g/dL (3.4-5.0); BUN/Creatinine Ratio 14.7; Bilirubin, Total 0.3 mg/dL (0.2-1.0); Calcium 8.3 mg/dL (8.5-10.1)
[2022-04-10 13:17] LABS: % Iron Saturation 8.1 % (15-50)
== END | disposition home or self-care (01) ==
LOC: LAB 11:17
PROVIDERS: ATTEND Internal Medicine
DX: D68.9 Coagulation defect, unspecified (principal); D50.9 Iron deficiency anemia, unspecified; G89.4 Chronic pain syndrome; R10.9 Unspecified abdominal pain; K90.9 Intestinal malabsorption, unspecified
CPT/HCPCS: 36415; 80053; 82607; 82728; 82746; 83540; 83550; 83615; 85025

== ENCOUNTER 2022-06-12 11:24 | Emergency (ER) | payer MEDICAID ==
[~2022-06-12] VITALS: Ht 157.5 cm; Wt 71.0 kg
[2022-06-12] MEDS ORDERED: ONDANSETRON HCL 4 MG/2 ML VIAL IV ONE (13:00)
[2022-06-12] MEDS ORDERED: KETOROLAC TROMETH 30 MG/ML 1ML VIAL IV ONE (13:00)
[2022-06-12] MEDS ORDERED: SODIUM CHLORIDE 0.9% 1,000 ML IV ONE (13:00)
[2022-06-12 13:41] LABS: Urine Bacteria FEW /hpf (None Seen); Urine Blood Negative /uL (Negative); Urine Mucus FEW (None Seen); Urine Specific Gravity 1.019 (1.001-1.035); Urine WBC 3 /hpf (0 - 5)
[2022-06-12 16:05] LABS: Albumin 3.4 g/dL (3.4-5.0); Calcium 8.1 mg/dL (8.5-10.1); Potassium 3.6 mmol/L (3.5-5.1)
[2022-06-12 16:08] LABS: BUN/Creatinine Ratio 13.9; Bilirubin, Total 0.3 mg/dL (0.2-1.0); Total Protein 6.9 g/dL (6.4-8.2)
[2022-06-12] MEDS ORDERED: NITR-87 PO (16:23)
[2022-06-12] MEDS ORDERED: TRAM-297 PO (16:23)
[2022-06-12 17:13] LABS: Basophils # (auto) 0 10 ^3/uL (0-0.2); Basophils % (auto) 0.9 % (0.0-2.0); Eosinophils # (auto) 0.1 10 ^3/uL (0-0.8); Eosinophils % (auto) 1.6 % (0.0-7.0); Hematocrit 31.7 % (36.0-46.0); Hemoglobin 10.6 g/dL (12.2-16.2); Lymphocytes # (auto) 1.6 10 ^3/uL (0.4-5.4); Lymphocytes % (auto) 38.9 % (10.0-50.0); Mean Corpuscular Hemoglobin 27.8 pg (28.0-32.0); Mean Corpuscular Hgb Conc. 33.4 g/dL (32.0-36.0); Mean Corpuscular Volume 83.3 fL (80.0-100.0); Monocytes # (auto) 0.4 10 ^3/uL (0-1.3); Monocytes % (auto) 8.8 % (0.0-12.0); Neutrophils # (auto) 2.1 10 ^3/uL (1.6-8.6); Neutrophils % (auto) 49.8 % (37.0-80.0); Nucleated Red Blood Cells % 0.1 %; Red Blood Cells 3.81 10^6/uL (4.0-5.20); Red Cell Distribution Width 14.3 % (11.8-14.3); White Blood Cell 4.2 10^3/uL (4.4-10.8)
[2022-06-12 17:48] VITALS: BP 124/76
[2022-06-12] MEDS ORDERED: cefTRIAXone W LIDOCAINE 1 GM IM IM ONE (18:00)
[2022-06-12] MEDS ORDERED: cefTRIAXone SOD 1,000 MG VL ONE (18:23)
[2022-06-12] MEDS ORDERED: LIDOCAINE 1% (LOCAL ANESTH.) PF 5ml SDV ONE (18:24)
== END 2022-06-12 18:20 | disposition home or self-care (01) ==
LOC: ER 11:24
DX: N39.0 Urinary tract infection, site not specified (principal); J45.909 Unspecified asthma, uncomplicated; Z90.49 Acquired absence of other specified parts of digestive tract; Z90.89 Acquired absence of other organs; Z90.710 Acquired absence of both cervix and uterus; Z79.899 Other long term (current) drug therapy; Z88.0 Allergy status to penicillin; Z88.8 Allergy status to other drugs, medicaments and biological substances
CPT/HCPCS: 36415; 74176; 80053; 81001; 85025; 96361; 96372; 96374; 96375; 99285; J0696; J1885; J2405; J7030